=== PATIENT | female | born 1935 | race Two or more races ===

== ENCOUNTER → 2017-03-13 | Outpatient (CLI) | payer MEDICARE, OTHER ==
[~2017-03-13] MED LIST: BENA20TA48 PO; LEVO50TA74 PO; LUBI24CA7 PO; MELO-110 PO; PROP10DR2 BOTH EYES; SIMV20TA2 PO; TRAM50TA2 PO; TRIA1TAB PO
== END | disposition home or self-care (01) ==
LOC: C/S 14:04
PROVIDERS: ATTEND Internal Medicine
DX: K57.92 Diverticulitis of intestine, part unspecified, without perforation or abscess without bleeding (principal)
CPT/HCPCS: 74176